=== PATIENT | female | born 1955 | race Caucasian/White ===

== ENCOUNTER 2018-01-27 07:50 | Emergency (ER) | payer OTHER ==
[~2018-01-27] VITALS: Ht 162.6 cm; Wt 98.9 kg
[2018-01-27 07:55] VITALS: BP_SYST 199
[2018-01-27] MEDS ORDERED: ALBUTEROL SULFATE 0.083% 2.5 MG/3 ML VIAL.NEB IH ONE ×2 (08:00→09:15)
[2018-01-27] MEDS ORDERED: IPRATROPIUM BROM 0.5 MG/2.5 ML VIAL.NEB (ATROVENT) IH ONE ×2 (08:00→09:15)
[2018-01-27] MEDS ORDERED: PREDNISONE 20 MG TABLET PO ONE (08:00)
[2018-01-27] MEDS ORDERED: ASPIRIN 81 MG TAB.CHEW PO ONE (08:15)
[2018-01-27] MEDS ORDERED: FLUT1DIS3 INH (08:44)
[2018-01-27] MEDS ORDERED: DILT240C91 PO (08:44)
[2018-01-27] MEDS ORDERED: MONT10TA25 PO (08:44)
[2018-01-27] MEDS ORDERED: VALS320T10 PO (08:44)
[2018-01-27] MEDS ORDERED: LIP20 PO (08:44)
[2018-01-27] MEDS ORDERED: SITA100T7 PO (08:44)
[2018-01-27] MEDS ORDERED: PRO40 PO (08:44)
[2018-01-27] MEDS ORDERED: METF1000 PO (08:44)
[2018-01-27] MEDS ORDERED: AMLO5TAB4 PO (08:44)
[2018-01-27] MEDS ORDERED: ASA81 PO (08:44)
[2018-01-27] MEDS ORDERED: methylPREDNISolone SOD SUCC/PF 62.5 MG/ML VIAL IVP ONE (08:45)
[2018-01-27] MEDS ORDERED: ALBU2.5V7 INH (09:06)
[2018-01-27] MEDS ORDERED: MORPHINE 4 MG/ML INJ. SYRINGE IVP ONE (09:15)
[2018-01-27 09:32] LABS: CALCIUM 9.3 mg/dL (8.4-11.0); CREATININE 0.79 mg/dL (0.55-1.30); POTASSIUM 4.1 mmol/L (3.5-5.1)
[2018-01-27 09:37] LABS: ALBUMIN 3.1 g/dL (3.4-4.8); TOTAL BILIRUBIN 0.4 mg/dL (0.0-1.0)
[2018-01-27 09:38] LABS: PROTHROMBIN TIME 9.7 SECS (9.5-12.5)
[2018-01-27 09:40] LABS: BASOPHILS # (AUTO) 0.5 K/uL (0.0-0.2); BASOPHILS % (AUTO) 3.1 % (0.0-2.0); EOSINOPHILS # (AUTO) 0.1 K/uL (0.0-0.4); EOSINOPHILS % (AUTO) 0.5 % (0.0-4.0); HEMATOCRIT 40.4 % (36-48); HEMOGLOBIN 13.4 g/dL (12.0-16.0); LYMPHOCYTES # (AUTO) 1.3 K/uL (1.0-5.5); LYMPHOCYTES % (AUTO) 8.3 % (20.5-51.5); MEAN CORPUSCULAR HEMOGLOBIN 29 pg (27-31); MEAN CORPUSCULAR HGB CONC 33 % (32-36); MEAN CORPUSCULAR VOLUME 88 fL (79.0-98.0); MONOCYTES % (AUTO) 6.1 % (1.7-9.3); NEUTROPHILS # (AUTO) 13.1 K/uL (1.8-7.7); PLATELET COUNT (AUTO) 396 K/uL (130-430); RED BLOOD CELL COUNT(AUTO) 4.58 MIL/uL (4.2-6.2)
[2018-01-27 10:35] VITALS: BP_SYST 147
== END 2018-01-27 10:35 | disposition home or self-care (01) ==
LOC: SED 07:50
DX: R07.89 Other chest pain (principal); R06.02 Shortness of breath; J44.9 Chronic obstructive pulmonary disease, unspecified; E11.9 Type 2 diabetes mellitus without complications; I10 Essential (primary) hypertension; Z98.84 Bariatric surgery status; Z88.0 Allergy status to penicillin; Z79.899 Other long term (current) drug therapy
CPT/HCPCS: 36415; 71045; 80053; 82550; 83880; 84484; 85025; 85610; 85730; 93005; 94640; 96374; 96375; 99285; J2270; J2930; J7512; J7613

== ENCOUNTER 2020-02-10 12:36 | Inpatient (IN) | payer OTHER, SELFPAY ==
[~2020-02-10] VITALS: Ht 157.5 cm; Wt 131.5 kg
[~2020-02-10 12:36] MED LIST: ALBU2.5V7 INH; AMLO5TAB4 PO; ASA81 PO; DILT240C91 PO; FLUT1DIS3 INH; LIP20 PO; METF1000 PO; MONT10TA25 PO; PRO40 PO; SITA100T11 PO; VALS320T2 PO
[2020-02-10 12:48] VITALS: BP_SYST 145
[2020-02-10] MEDS ORDERED: DILTIAZEM HCL 25 MG/5 ML VIAL IVP ONE ×3 (14:00→17:30)
[2020-02-10 15:04] LABS: BASOPHILS % (AUTO) 0.2 % (0.0-2.0); HEMATOCRIT 38.1 % (36-48); HEMOGLOBIN 11.9 g/dL (12.0-16.0); LYMPHOCYTES # (AUTO) 0.4 K/uL (1.0-5.5); LYMPHOCYTES % (AUTO) 3.4 % (20.5-51.5); MEAN CORPUSCULAR HEMOGLOBIN 27 pg (27-31); MEAN CORPUSCULAR HGB CONC 31 % (32-36); MEAN CORPUSCULAR VOLUME 86 fL (79.0-98.0); MONOCYTES # (AUTO) 0.6 K/uL (0.0-1.0); NEUTROPHILS # (AUTO) 10.2 K/uL (1.8-7.7); NEUTROPHILS % (AUTO) 91.4 % (40.0-70.0); PLATELET COUNT (AUTO) 188 K/uL (130-430); RED CELL DISTRIBUTION WIDTH 18.5 % (9.0-15.0); WHITE BLOOD COUNT (AUTO) 11.2 K/uL (4.8-10.8)
[2020-02-10 15:58] LABS: CALCIUM 9.1 mg/dL (8.4-11.0); CREATININE 0.93 mg/dL (0.55-1.30); POTASSIUM 5.5 mmol/L (3.5-5.1)
[2020-02-10] MEDS ORDERED: DIGOXIN 0.5 MG/2 ML AMP IVP ONE (16:00)
[2020-02-10 16:04] LABS: ALBUMIN 3.3 g/dL (3.4-4.8); TOTAL BILIRUBIN 0.4 mg/dL (0.0-1.0)
[2020-02-10] MEDS ORDERED: DILTIAZEM HCL 125 MG in D5W 100 ML IV ONE (16:15)
[2020-02-10 16:24] LABS: C-REACTIVE PROTEIN QUANT 1.1 mg/dL (0-0.5)
[2020-02-10 16:33] LABS: PROTHROMBIN TIME 9.6 SECS (9.5-12.5)
[2020-02-10] MEDS ORDERED: ALBUTEROL SULFATE 0.083% 2.5 MG/3 ML VIAL.NEB INH PRN (17:30)
[2020-02-10] MEDS ORDERED: IPRATROPIUM BROM 0.5 MG/2.5 ML VIAL.NEB (ATROVENT) INH PRN (17:30)
[2020-02-10] MEDS ORDERED: DEXTROSE 50% JECT 50 ML DISP.SYRIN IVP PRN (17:30)
[2020-02-10 17:36] VITALS: BP_SYST 150
[2020-02-10] MEDS ORDERED: PRAM1TAB4 PO (18:22)
[2020-02-10] MEDS ORDERED: OMEP20CA11 PO (18:22)
[2020-02-10] MEDS ORDERED: ALBU8.5H8 INH (18:22)
[2020-02-10] MEDS ORDERED: NEU300 PO (18:22)
[2020-02-10] MEDS ORDERED: SPIRIVA INH (18:22)
[2020-02-10] MEDS ORDERED: IRBE300T40 PO (18:22)
[2020-02-10] MEDS ORDERED: SPIR25OR PO (18:22)
[2020-02-10] MEDS ORDERED: GLIM2TAB2 PO (18:22)
[2020-02-10] MEDS ORDERED: DILT120C89 PO (18:22)
[2020-02-10] MEDS ORDERED: DULA0.75 SQ (18:22)
[2020-02-10] MEDS ORDERED: PRED5POW MC (18:22)
[2020-02-10] MEDS ORDERED: PIOG30TA70 PO (18:22)
[2020-02-10] MEDS ORDERED: APIX5TAB4 PO (18:22)
[2020-02-10] MEDS ORDERED: PRED5POW11 PO (18:22)
[2020-02-10] MEDS ORDERED: FLEC150T2 PO (18:22)
[2020-02-10] MEDS ORDERED: DOXE50CA4 PO (18:22)
[2020-02-10] MEDS: METOPROLOL TARTRATE 5 MG/5 ML VIAL IVP PRN (18:37)
[2020-02-10] MEDS ORDERED: AZITHROMYCIN 500 MG in NS 250 ML IV ONE (18:45)
[2020-02-10] MEDS ORDERED: FUROSEMIDE 20 MG/2 ML VIAL IVP ONE (18:45)
[2020-02-10] MEDS ORDERED: METOPROLOL TARTRATE 5 MG/5 ML VIAL ONE (18:46)
[2020-02-10] MEDS: ALBUTEROL SULFATE 0.083% 2.5 MG/3 ML VIAL.NEB INH SCH (19:00)
[2020-02-10] MEDS: IPRATROPIUM BROM 0.5 MG/2.5 ML VIAL.NEB (ATROVENT) INH SCH (19:00)
[2020-02-10] MEDS ORDERED: LevALBUTEROL HCL 1.25 MG/0.5 ML *CONC.* VIAL.NEB (XOPENEX CONC.) INH ONE (20:02)
[2020-02-10] MEDS ORDERED: AZITHROMYCIN 500 MG/VIAL (ZITHROMAX) IV ONE (20:17)
[2020-02-10] MEDS: FUROSEMIDE 20 MG/2 ML VIAL IVP SCH (20:45)
[2020-02-10] MEDS: MONTELUKAST 10 MG TABLET PO SCH (21:10)
[2020-02-10] MEDS: methylPREDNISolone SOD SUCC/PF 62.5 MG/ML VIAL IVP SCH (22:51)
[2020-02-10 23:47] LABS: BILIRUBIN,URINE NEGATIVE (NEGATIVE); BLOOD, URINE NEGATIVE (NEGATIVE); CLARITY/URINE CLEAR (CLEAR); COLOR,URINE YELLOW (YELLOW); GLUCOSE,URINE 3+ (NEGATIVE); KETONES,URINE NEGATIVE (NEGATIVE); LEUKOCYTE ESTERASE ,URINE NEGATIVE (NEGATIVE); NITRITE, URINE NEGATIVE (NEGATIVE); PROTEIN URINE NEGATIVE (NEGATIVE); UROBILINOGEN,URINE 0.2 (0.2-1.0)
[2020-02-11] VITALS (21 sets, daily range): BP systolic 106–160
[2020-02-11] MEDS ORDERED: DILTIAZEM HCL 125 MG/25 ML VIAL IV ONE (00:46)
[2020-02-11] MEDS: IPRATROPIUM BROM 0.5 MG/2.5 ML VIAL.NEB (ATROVENT) INH SCH ×4 (01:00→20:15)
[2020-02-11] MEDS: ALBUTEROL SULFATE 0.083% 2.5 MG/3 ML VIAL.NEB INH SCH ×4 (01:00→20:15)
[2020-02-11] MEDS ORDERED: LevALBUTEROL HCL 1.25 MG/0.5 ML *CONC.* VIAL.NEB (XOPENEX CONC.) INH ONE (01:51)
[2020-02-11] MEDS: methylPREDNISolone SOD SUCC/PF 62.5 MG/ML VIAL IVP SCH ×3 (05:25→21:37)
[2020-02-11] MEDS: INSULIN REGULAR, HUMAN 100 UNITS/ML, 10 ML VIAL (humuLIN R) SUBCUT PRN ×3 (05:26→17:52)
[2020-02-11 08:46] LABS: HEMATOCRIT 38.2 % (36-48); HEMOGLOBIN 12.1 g/dL (12.0-16.0); LYMPHOCYTES # (AUTO) 0.4 K/uL (1.0-5.5); LYMPHOCYTES % (AUTO) 3.5 % (20.5-51.5); MEAN CORPUSCULAR HEMOGLOBIN 28 pg (27-31); MEAN CORPUSCULAR HGB CONC 32 % (32-36); MEAN CORPUSCULAR VOLUME 88 fL (79.0-98.0); MONOCYTES # (AUTO) 0.2 K/uL (0.0-1.0); MONOCYTES % (AUTO) 1.8 % (1.7-9.3); NEUTROPHILS # (AUTO) 11.3 K/uL (1.8-7.7); NEUTROPHILS % (AUTO) 94.7 % (40.0-70.0); PLATELET COUNT (AUTO) 196 K/uL (130-430); RED BLOOD CELL COUNT(AUTO) 4.35 MIL/uL (4.2-6.2); RED CELL DISTRIBUTION WIDTH 18.8 % (9.0-15.0)
[2020-02-11] MEDS: DILTIAZEM HCL 240 MG CAP.SR.24H PO SCH (08:47)
[2020-02-11] MEDS: ASPIRIN 81 MG TAB.CHEW PO SCH (08:47)
[2020-02-11] MEDS: PANTOPRAZOLE SODIUM 40 MG TAB PO SCH (08:48)
[2020-02-11] MEDS: ATORVASTATIN 20 MG TABLET PO SCH (08:48)
[2020-02-11 08:58] LABS: CALCIUM 9.2 mg/dL (8.4-11.0); CREATININE 1.03 mg/dL (0.55-1.30); POTASSIUM 4.8 mmol/L (3.5-5.1)
[2020-02-11] MEDS ORDERED: LOSARTAN POTASSIUM 50 MG TABLET (COZAAR) PO SCH (09:00)
[2020-02-11 09:03] LABS: ALBUMIN 3.4 g/dL (3.4-4.8); TOTAL BILIRUBIN 0.5 mg/dL (0.0-1.0)
[2020-02-11 10:05] LABS: PROTHROMBIN TIME 9.6 SECS (9.5-12.5)
[2020-02-11] MEDS: AZITHROMYCIN 500 MG in NS 250 ML IV SCH (12:08)
[2020-02-11] MEDS: FUROSEMIDE 20 MG/2 ML VIAL IVP SCH (12:09)
[2020-02-11] MEDS: DILTIAZEM HCL 125 MG in D5W 100 ML IV SCH (12:40)
[2020-02-11] MEDS ORDERED: METOPROLOL TARTRATE 25 MG TABLET PO ONE (12:45)
[2020-02-11] MEDS: MONTELUKAST 10 MG TABLET PO SCH (17:46)
[2020-02-11] MEDS ORDERED: IBUPROFEN 600 MG TABLET PO ONE (20:00)
[2020-02-11] MEDS: METOPROLOL TARTRATE 25 MG TABLET PO SCH (21:00)
[2020-02-12] VITALS (18 sets, daily range): BP systolic 118–165
[2020-02-12] MEDS ORDERED: PRAMIPEXOLE DI-HCL 0.25 MG TABLET PO ONE
[2020-02-12] MEDS ORDERED: DILTIAZEM HCL 125 MG/25 ML VIAL IV ONE (00:23)
[2020-02-12] MEDS: DILTIAZEM HCL 125 MG in D5W 100 ML IV SCH (00:30)
[2020-02-12] MEDS: INSULIN REGULAR, HUMAN 100 UNITS/ML, 10 ML VIAL (humuLIN R) SUBCUT PRN ×5 (00:34→23:57)
[2020-02-12] MEDS: ALBUTEROL SULFATE 0.083% 2.5 MG/3 ML VIAL.NEB INH SCH ×2 (01:53→07:18)
[2020-02-12] MEDS: IPRATROPIUM BROM 0.5 MG/2.5 ML VIAL.NEB (ATROVENT) INH SCH ×2 (01:54→07:18)
[2020-02-12] MEDS: methylPREDNISolone SOD SUCC/PF 62.5 MG/ML VIAL IVP SCH (06:02)
[2020-02-12] MEDS: METOPROLOL TARTRATE 5 MG/5 ML VIAL IVP PRN (06:08)
[2020-02-12] MEDS ORDERED: DOXEPINE (SINEQUAN) 25 MG CAP PO ONE ×2 (07:30)
[2020-02-12] MEDS: AZITHROMYCIN 500 MG in NS 250 ML IV SCH (09:34)
[2020-02-12] MEDS: PANTOPRAZOLE SODIUM 40 MG TAB PO SCH (09:34)
[2020-02-12] MEDS: DILTIAZEM HCL 240 MG CAP.SR.24H PO SCH (09:35)
[2020-02-12] MEDS: ATORVASTATIN 20 MG TABLET PO SCH (09:35)
[2020-02-12] MEDS: FUROSEMIDE 20 MG/2 ML VIAL IVP SCH ×2 (09:36→20:25)
[2020-02-12] MEDS: ASPIRIN 81 MG TAB.CHEW PO SCH (09:36)
[2020-02-12] MEDS: METOPROLOL TARTRATE 25 MG TABLET PO SCH ×2 (09:36→20:25)
[2020-02-12] MEDS: LEVALBUTEROL HCL 0.63 MG/3 ML VIAL.NEB INH SCH ×2 (14:04→19:00)
[2020-02-12] MEDS: MONTELUKAST 10 MG TABLET PO SCH (17:26)
[2020-02-12] MEDS ORDERED: INSULIN REGULAR, HUMAN 100 UNITS/ML, 10 ML VIAL SUBCUT ONE (18:00)
[2020-02-12] MEDS: DOXEPINE (SINEQUAN) 25 MG CAP PO SCH (20:25)
[2020-02-12] MEDS ORDERED: MUPIROCIN 1 GM OIN.PF.APP NS SCH (21:00)
[2020-02-13 00:23] VITALS: BP_SYST 123
[2020-02-13] MEDS: LEVALBUTEROL HCL 0.63 MG/3 ML VIAL.NEB INH SCH ×4 (01:00→19:51)
[2020-02-13] MEDS: INSULIN REGULAR, HUMAN 100 UNITS/ML, 10 ML VIAL (humuLIN R) SUBCUT PRN ×4 (06:02→23:27)
[2020-02-13 08:00] VITALS: BP_SYST 149
[2020-02-13] MEDS: AZITHROMYCIN 500 MG in NS 250 ML IV SCH (09:20)
[2020-02-13] MEDS: FUROSEMIDE 20 MG/2 ML VIAL IVP SCH ×2 (09:22→22:31)
[2020-02-13] MEDS: ASPIRIN 81 MG TAB.CHEW PO SCH (09:22)
[2020-02-13] MEDS: MUPIROCIN 2% TOPICAL OINTMENT 22 GM NS SCH ×2 (09:22→22:33)
[2020-02-13] MEDS: DILTIAZEM HCL 240 MG CAP.SR.24H PO SCH (09:23)
[2020-02-13] MEDS: METOPROLOL TARTRATE 25 MG TABLET PO SCH ×2 (09:23→22:35)
[2020-02-13] MEDS: PANTOPRAZOLE SODIUM 40 MG TAB PO SCH (09:23)
[2020-02-13] MEDS: ATORVASTATIN 20 MG TABLET PO SCH (09:23)
[2020-02-13] MEDS: MONTELUKAST 10 MG TABLET PO SCH (18:00)
[2020-02-13 18:58] LABS: BASOPHILS % (AUTO) 0.2 % (0.0-2.0); EOSINOPHILS % (AUTO) 0.1 % (0.0-4.0); HEMATOCRIT 39.1 % (36-48); HEMOGLOBIN 12.2 g/dL (12.0-16.0); LYMPHOCYTES # (AUTO) 1.7 K/uL (1.0-5.5); LYMPHOCYTES % (AUTO) 7.8 % (20.5-51.5); MEAN CORPUSCULAR HEMOGLOBIN 27 pg (27-31); MEAN CORPUSCULAR HGB CONC 31 % (32-36); MEAN CORPUSCULAR VOLUME 86 fL (79.0-98.0); MONOCYTES # (AUTO) 1.7 K/uL (0.0-1.0); NEUTROPHILS # (AUTO) 17.9 K/uL (1.8-7.7); NEUTROPHILS % (AUTO) 83.9 % (40.0-70.0); PLATELET COUNT (AUTO) 175 K/uL (130-430); RED BLOOD CELL COUNT(AUTO) 4.55 MIL/uL (4.2-6.2); RED CELL DISTRIBUTION WIDTH 19.2 % (9.0-15.0); WHITE BLOOD COUNT (AUTO) 21.4 K/uL (4.8-10.8)
[2020-02-13 19:11] VITALS: BP_SYST 145; BP_SYST 98
[2020-02-13 19:24] LABS: CREATININE 1.58 mg/dL (0.55-1.30)
[2020-02-13] MEDS: APIXABAN 2.5 MG TABLET PO SCH (22:28)
[2020-02-13] MEDS: methylPREDNISolone SOD SUCC 40 MG/ML VIAL IVP SCH (22:32)
[2020-02-13] MEDS: DOXEPINE (SINEQUAN) 25 MG CAP PO SCH (22:36)
[2020-02-13] MEDS: FLECAINIDE ACETATE 50 MG TABLET (TAMBOCOR) PO SCH (22:37)
[2020-02-14] MEDS: LEVALBUTEROL HCL 0.63 MG/3 ML VIAL.NEB INH SCH ×4 (01:06→18:38)
[2020-02-14 01:16] VITALS: BP_SYST 107
[2020-02-14] MEDS: INSULIN REGULAR, HUMAN 100 UNITS/ML, 10 ML VIAL (humuLIN R) SUBCUT PRN ×4 (06:25→23:35)
[2020-02-14 08:00] VITALS: BP_SYST 143
[2020-02-14] MEDS: ASPIRIN 81 MG TAB.CHEW PO SCH (09:00)
[2020-02-14] MEDS: APIXABAN 2.5 MG TABLET PO SCH (09:00)
[2020-02-14] MEDS: METOPROLOL TARTRATE 25 MG TABLET PO SCH ×2 (09:49→20:40)
[2020-02-14] MEDS: DILTIAZEM HCL 240 MG CAP.SR.24H PO SCH (09:50)
[2020-02-14] MEDS: ATORVASTATIN 20 MG TABLET PO SCH (09:51)
[2020-02-14] MEDS: PANTOPRAZOLE SODIUM 40 MG TAB PO SCH (09:51)
[2020-02-14] MEDS: methylPREDNISolone SOD SUCC 40 MG/ML VIAL IVP SCH ×2 (09:51→20:44)
[2020-02-14] MEDS: AZITHROMYCIN 500 MG in NS 250 ML IV SCH (09:52)
[2020-02-14] MEDS: FLECAINIDE ACETATE 50 MG TABLET (TAMBOCOR) PO SCH ×2 (09:53→20:39)
[2020-02-14] MEDS: MUPIROCIN 2% TOPICAL OINTMENT 22 GM NS SCH ×2 (09:54→20:40)
[2020-02-14 09:57] LABS: CALCIUM 9.2 mg/dL (8.4-11.0); CREATININE 1.22 mg/dL (0.55-1.30); POTASSIUM 4.6 mmol/L (3.5-5.1)
[2020-02-14 10:01] LABS: BASOPHILS % (AUTO) 0.1 % (0.0-2.0); HEMATOCRIT 40.8 % (36-48); HEMOGLOBIN 12.7 g/dL (12.0-16.0); LYMPHOCYTES # (AUTO) 0.4 K/uL (1.0-5.5); LYMPHOCYTES % (AUTO) 2.4 % (20.5-51.5); MEAN CORPUSCULAR HEMOGLOBIN 27 pg (27-31); MEAN CORPUSCULAR HGB CONC 31 % (32-36); MEAN CORPUSCULAR VOLUME 88 fL (79.0-98.0); MONOCYTES # (AUTO) 0.5 K/uL (0.0-1.0); MONOCYTES % (AUTO) 3.2 % (1.7-9.3); NEUTROPHILS # (AUTO) 14.9 K/uL (1.8-7.7); NEUTROPHILS % (AUTO) 94.3 % (40.0-70.0); PLATELET COUNT (AUTO) 183 K/uL (130-430); RED BLOOD CELL COUNT(AUTO) 4.64 MIL/uL (4.2-6.2); RED CELL DISTRIBUTION WIDTH 19.4 % (9.0-15.0); WHITE BLOOD COUNT (AUTO) 15.9 K/uL (4.8-10.8)
[2020-02-14] MEDS ORDERED: INSULIN GLARGINE 100 UNITS/ML 10 ML VIAL SUBCUT ONE (11:31)
[2020-02-14 12:35] VITALS: BP_SYST 111
[2020-02-14 14:27] VITALS: BP_SYST 111
[2020-02-14 16:24] VITALS: BP_SYST 142
[2020-02-14] MEDS: MONTELUKAST 10 MG TABLET PO SCH (17:54)
[2020-02-14] MEDS: DOXEPINE (SINEQUAN) 25 MG CAP PO SCH (20:38)
[2020-02-14 20:54] VITALS: BP_SYST 135
[2020-02-15] VITALS (7 sets, daily range): BP systolic 140–165
[2020-02-15] MEDS: LEVALBUTEROL HCL 0.63 MG/3 ML VIAL.NEB INH SCH ×4 (01:50→19:20)
[2020-02-15] MEDS: INSULIN REGULAR, HUMAN 100 UNITS/ML, 10 ML VIAL (humuLIN R) SUBCUT PRN ×2 (05:36→11:49)
[2020-02-15 07:58] LABS: BASOPHILS % (AUTO) 0.1 % (0.0-2.0); HEMOGLOBIN 12.4 g/dL (12.0-16.0); LYMPHOCYTES # (AUTO) 0.6 K/uL (1.0-5.5); LYMPHOCYTES % (AUTO) 3.6 % (20.5-51.5); MEAN CORPUSCULAR HEMOGLOBIN 27 pg (27-31); MEAN CORPUSCULAR HGB CONC 32 % (32-36); MEAN CORPUSCULAR VOLUME 86 fL (79.0-98.0); MONOCYTES # (AUTO) 0.8 K/uL (0.0-1.0); MONOCYTES % (AUTO) 5.2 % (1.7-9.3); NEUTROPHILS # (AUTO) 14.7 K/uL (1.8-7.7); NEUTROPHILS % (AUTO) 91.1 % (40.0-70.0); PLATELET COUNT (AUTO) 179 K/uL (130-430); RED BLOOD CELL COUNT(AUTO) 4.53 MIL/uL (4.2-6.2); RED CELL DISTRIBUTION WIDTH 18.8 % (9.0-15.0); WHITE BLOOD COUNT (AUTO) 16.1 K/uL (4.8-10.8)
[2020-02-15 08:12] LABS: ALBUMIN 3.2 g/dL (3.4-4.8); C-REACTIVE PROTEIN QUANT 1.4 mg/dL (0-0.5); CALCIUM 9.3 mg/dL (8.4-11.0); CREATININE 1.01 mg/dL (0.55-1.30); POTASSIUM 4.3 mmol/L (3.5-5.1); TOTAL BILIRUBIN 0.5 mg/dL (0.0-1.0)
[2020-02-15] MEDS ORDERED: INSULIN GLARGINE 100 UNITS/ML 10 ML VIAL SUBCUT SCH (09:00)
[2020-02-15] MEDS: MUPIROCIN 2% TOPICAL OINTMENT 22 GM NS SCH ×2 (09:00→21:27)
[2020-02-15] MEDS: PANTOPRAZOLE SODIUM 40 MG TAB PO SCH (09:38)
[2020-02-15] MEDS: ATORVASTATIN 20 MG TABLET PO SCH (09:38)
[2020-02-15] MEDS: DILTIAZEM HCL 240 MG CAP.SR.24H PO SCH (09:38)
[2020-02-15] MEDS: FLECAINIDE ACETATE 50 MG TABLET (TAMBOCOR) PO SCH (09:39)
[2020-02-15] MEDS: AZITHROMYCIN 500 MG in NS 250 ML IV SCH (09:39)
[2020-02-15] MEDS: methylPREDNISolone SOD SUCC 40 MG/ML VIAL IVP SCH ×2 (09:39→21:26)
[2020-02-15] MEDS: METOPROLOL TARTRATE 25 MG TABLET PO SCH ×2 (09:57→21:27)
[2020-02-15 11:25] LABS: ERYTHROCYTE SEDIMENTATION RATE 2 MM/HR (0-20)
[2020-02-15] MEDS: METOPROLOL TARTRATE 5 MG/5 ML VIAL IVP PRN (11:46)
[2020-02-15] MEDS ORDERED: DEXTROSE 50% JECT 50 ML DISP.SYRIN IVP PRN (16:00)
[2020-02-15] MEDS: INSULIN Lispro 100 UNITS/ML VIAL (humaLOG) SUBCUT SCH (17:18)
[2020-02-15] MEDS: INSULIN LISPRO SLIDING SCALE 100 UNITS/ML VIAL (humaLOG) SUBCUT PRN ×2 (18:06→23:26)
[2020-02-15] MEDS: MONTELUKAST 10 MG TABLET PO SCH (18:09)
[2020-02-15] MEDS: DOXEPINE (SINEQUAN) 25 MG CAP PO SCH (21:27)
[2020-02-16] VITALS (7 sets, daily range): BP systolic 136–155
[2020-02-16] MEDS: METOPROLOL TARTRATE 5 MG/5 ML VIAL IVP PRN (01:14)
[2020-02-16] MEDS: LEVALBUTEROL HCL 0.63 MG/3 ML VIAL.NEB INH SCH ×4 (01:29→19:25)
[2020-02-16] MEDS: INSULIN Lispro 100 UNITS/ML VIAL (humaLOG) SUBCUT SCH ×3 (06:56→17:44)
[2020-02-16] MEDS: INSULIN LISPRO SLIDING SCALE 100 UNITS/ML VIAL (humaLOG) SUBCUT PRN ×4 (06:57→23:08)
[2020-02-16] MEDS ORDERED: INSULIN GLARGINE 100 UNITS/ML 10 ML VIAL SUBCUT SCH ×2 (09:00)
[2020-02-16] MEDS: methylPREDNISolone SOD SUCC 40 MG/ML VIAL IVP SCH ×2 (09:16→22:41)
[2020-02-16] MEDS: MUPIROCIN 2% TOPICAL OINTMENT 22 GM NS SCH ×2 (09:16→22:40)
[2020-02-16] MEDS: DILTIAZEM HCL 180 MG CAP.SR.24H PO SCH (09:18)
[2020-02-16] MEDS: PANTOPRAZOLE SODIUM 40 MG TAB PO SCH (09:19)
[2020-02-16] MEDS: METOPROLOL TARTRATE 25 MG TABLET PO SCH ×2 (09:19→22:41)
[2020-02-16] MEDS: ATORVASTATIN 20 MG TABLET PO SCH (09:20)
[2020-02-16] MEDS: DIGOXIN 0.5 MG/2 ML AMP IVP SCH ×4 (11:09→22:40)
[2020-02-16] MEDS ORDERED: INSULIN NPH 100 UNITS/ML 10 ML VIAL SUBCUT ONE (16:00)
[2020-02-16] MEDS: MONTELUKAST 10 MG TABLET PO SCH (17:51)
[2020-02-16] MEDS: DOXEPINE (SINEQUAN) 25 MG CAP PO SCH (22:41)
[2020-02-17] VITALS (7 sets, daily range): BP systolic 152–192
[2020-02-17] MEDS: METOPROLOL TARTRATE 5 MG/5 ML VIAL IVP PRN ×2 (00:41→05:59)
[2020-02-17] MEDS: LEVALBUTEROL HCL 0.63 MG/3 ML VIAL.NEB INH SCH ×3 (01:25→13:00)
[2020-02-17] MEDS: INSULIN LISPRO SLIDING SCALE 100 UNITS/ML VIAL (humaLOG) SUBCUT PRN ×2 (05:45→12:07)
[2020-02-17] MEDS: INSULIN Lispro 100 UNITS/ML VIAL (humaLOG) SUBCUT SCH ×2 (06:04→12:06)
[2020-02-17 08:20] LABS: CALCIUM 9.7 mg/dL (8.4-11.0); CREATININE 0.76 mg/dL (0.55-1.30); POTASSIUM 4.9 mmol/L (3.5-5.1)
[2020-02-17] MEDS ORDERED: INSULIN GLARGINE 100 UNITS/ML 10 ML VIAL SUBCUT SCH (09:00)
[2020-02-17] MEDS ORDERED: DIGOXIN 0.5 MG/2 ML AMP IVP SCH (09:00)
[2020-02-17] MEDS: methylPREDNISolone SOD SUCC 40 MG/ML VIAL IVP SCH (09:01)
[2020-02-17] MEDS: PANTOPRAZOLE SODIUM 40 MG TAB PO SCH (09:01)
[2020-02-17] MEDS: ATORVASTATIN 20 MG TABLET PO SCH (09:02)
[2020-02-17] MEDS: DILTIAZEM HCL 180 MG CAP.SR.24H PO SCH (09:02)
[2020-02-17] MEDS: MUPIROCIN 2% TOPICAL OINTMENT 22 GM NS SCH (09:08)
[2020-02-17] MEDS: METOPROLOL TARTRATE 25 MG TABLET PO SCH (09:17)
== END 2020-02-17 14:35 | disposition home or self-care (01) | DRG 291 ==
LOC: SED 12:36 → SMU 16:15 → SIC 21:15 → STU 02-12 16:38
PROVIDERS: ADMIT Internal Medicine Hospice and Palliative Medicine; ATTEND Internal Medicine Hospice and Palliative Medicine
PROC: 05H533Z Insertion of Infusion Device into Right Subclavian Vein, Percutaneous Approach (ICD-10-PCS; principal; 2020-02-11)
DX: I50.33 Acute on chronic diastolic (congestive) heart failure (principal); J96.21 Acute and chronic respiratory failure with hypoxia; J45.901 Unspecified asthma with (acute) exacerbation; I48.20 Chronic atrial fibrillation, unspecified; J44.1 Chronic obstructive pulmonary disease with (acute) exacerbation; N17.9 Acute kidney failure, unspecified; Z68.43 Body mass index [BMI] 50.0-59.9, adult; E11.65 Type 2 diabetes mellitus with hyperglycemia; R31.9 Hematuria, unspecified; Z20.828 Contact with and (suspected) exposure to other viral communicable diseases; E66.01 Morbid (severe) obesity due to excess calories; Z77.22 Contact with and (suspected) exposure to environmental tobacco smoke (acute) (chronic); Z79.52 Long term (current) use of systemic steroids; Z82.5 Family history of asthma and other chronic lower respiratory diseases; Z83.3 Family history of diabetes mellitus; Z90.710 Acquired absence of both cervix and uterus; Z98.84 Bariatric surgery status; Z88.0 Allergy status to penicillin; Z79.82 Long term (current) use of aspirin; Z79.899 Other long term (current) drug therapy
CPT/HCPCS: 36415; 36600; 71045; 80048; 80053; 81003; 82550-TC; 82728; 82803-TC; 82962; 83036; 83605; 83615-TC; 83880; 84484; 85025; 85384-TC; 85610-TC; 85651-TC; 85730-TC; 86140; 87040-TC; 87081; 93005; 93306; 94640; 94760; 96365; 96366; 96375; 96376; 97116-GP; 97530-GP; 99291; C1751; G0378; J0456; J1030; J1160; J1815; J1940; J2930; J3490; J7050; J7060; J7612; J7613; J7614; U0003-CS

== ENCOUNTER 2020-03-02 13:07 | Inpatient (IN) | payer OTHER, SELFPAY ==
[~2020-03-02] VITALS: Ht 157.5 cm; Wt 123.0 kg
[2020-03-02 13:07] VITALS: BP_SYST 164
[~2020-03-02 13:07] MED LIST changes: +ALBU8.5H8 INH; -AMLO5TAB4 PO; +APIX5TAB4 PO; -DILT240C91 PO; +DOXE50CA4 PO; +FLEC150T2 PO; +GLIM2TAB2 PO; +IRBE300T40 PO; +NEU300 PO; +OMEP20CA11 PO; +PRAM1TAB4 PO; -PRO40 PO; -SITA100T11 PO; +SPIR25OR PO; +SPIRIVA INH; -VALS320T2 PO
[2020-03-02 16:42] LABS: BASOPHILS % (AUTO) 0.4 % (0.0-2.0); EOSINOPHILS # (AUTO) 0.2 K/uL (0.0-0.4); EOSINOPHILS % (AUTO) 1.7 % (0.0-4.0); HEMATOCRIT 35.9 % (36-48); HEMOGLOBIN 11.5 g/dL (12.0-16.0); LYMPHOCYTES # (AUTO) 1.4 K/uL (1.0-5.5); LYMPHOCYTES % (AUTO) 15.1 % (20.5-51.5); MEAN CORPUSCULAR HEMOGLOBIN 27 pg (27-31); MEAN CORPUSCULAR HGB CONC 32 % (32-36); MEAN CORPUSCULAR VOLUME 85 fL (79.0-98.0); MONOCYTES # (AUTO) 0.7 K/uL (0.0-1.0); MONOCYTES % (AUTO) 7.6 % (1.7-9.3); NEUTROPHILS # (AUTO) 6.9 K/uL (1.8-7.7); NEUTROPHILS % (AUTO) 75.2 % (40.0-70.0); PLATELET COUNT (AUTO) 330 K/uL (130-430); RED BLOOD CELL COUNT(AUTO) 4.21 MIL/uL (4.2-6.2); RED CELL DISTRIBUTION WIDTH 18.5 % (9.0-15.0); WHITE BLOOD COUNT (AUTO) 9.1 K/uL (4.8-10.8)
[2020-03-02 17:21] LABS: INR 1.1 (0.8-1.2); PROTHROMBIN TIME 10.6 SECS (9.5-12.5)
[2020-03-02 17:32] LABS: CREATININE 0.84 mg/dL (0.55-1.30); POTASSIUM 3.7 mmol/L (3.5-5.1)
[2020-03-02 17:37] LABS: ALBUMIN 2.2 g/dL (3.4-4.8); TOTAL BILIRUBIN 0.4 mg/dL (0.0-1.0)
[2020-03-02] MEDS ORDERED: AZITHROMYCIN 500 MG in NS 250 ML IV ONE (19:00)
[2020-03-02] MEDS ORDERED: LEVOFLOXACIN 500 MG/D5W 100 ML IV ONE (19:00)
[2020-03-02] MEDS ORDERED: AZITHROMYCIN 500 MG/VIAL (ZITHROMAX) IV ONE (19:33)
[2020-03-02] MEDS ORDERED: APIX5TAB PO (19:46)
[2020-03-02] MEDS ORDERED: LIP20 PO (19:48)
[2020-03-02] MEDS ORDERED: METO-442 PO (19:57)
[2020-03-02] MEDS ORDERED: DILT300C54 PO (19:57)
[2020-03-02] MEDS ORDERED: FURO-149 PO (19:57)
[2020-03-02] MEDS: AZITHROMYCIN 500 MG in NS 250 ML IV SCH (20:45)
[2020-03-02 20:54] VITALS: BP_SYST 142
[2020-03-02] MEDS ORDERED: ALBUTEROL SULFATE 0.083% 2.5 MG/3 ML VIAL.NEB INH PRN (21:00)
[2020-03-02] MEDS ORDERED: ALBUTEROL MDI INHALATION 8 GM INH INH PRN (21:00)
[2020-03-02] MEDS ORDERED: FLUTICASONE 250 mCg/SALMETEROL 50 mCg DISKUS W.DEV INH SCH (21:00)
[2020-03-02] MEDS ORDERED: DIPHENHYDRAMINE INJ 50 MG/ML VIAL IVP PRN (21:00)
[2020-03-02 22:00] VITALS: BP_SYST 142
[2020-03-02] MEDS: GABAPENTIN 300 MG CAPSULE PO SCH (22:00)
[2020-03-02] MEDS: APIXABAN 2.5 MG TABLET PO SCH (22:00)
[2020-03-02] MEDS: NORMAL SALINE 5 ML DISP.SYRIN IVF SCH (22:00)
[2020-03-02] MEDS: ATORVASTATIN 20 MG TABLET PO SCH (22:00)
[2020-03-02] MEDS: FLECAINIDE ACETATE 50 MG TABLET (TAMBOCOR) PO SCH (22:00)
[2020-03-03] MEDS: ALBUTEROL SULFATE 0.083% 2.5 MG/3 ML VIAL.NEB INH SCH ×4 (01:00→20:47)
[2020-03-03] MEDS: cefTRIAXone 1 GM IVPB PREMIX 50 ML IV SCH ×2 (02:21→21:13)
[2020-03-03] MEDS ORDERED: AZITHROMYCIN 500 MG/VIAL (ZITHROMAX) IV ONE (02:28)
[2020-03-03] MEDS ORDERED: cefTRIAXone 1 GM VIAL ONE (02:28)
[2020-03-03] MEDS ORDERED: MORPHINE 2 MG/ML INJ. SYRINGE ONE (02:36)
[2020-03-03] MEDS: MORPHINE 2 MG/ML INJ. SYRINGE IVP PRN ×3 (02:43→22:40)
[2020-03-03] MEDS: NORMAL SALINE 5 ML DISP.SYRIN IVF SCH ×3 (06:28→21:14)
[2020-03-03] MEDS: INSULIN REGULAR, HUMAN 100 UNITS/ML, 10 ML VIAL (humuLIN R) SUBCUT PRN ×3 (06:29→21:15)
[2020-03-03 07:03] LABS: BASOPHILS % (AUTO) 0.4 % (0.0-2.0); EOSINOPHILS # (AUTO) 0.2 K/uL (0.0-0.4); EOSINOPHILS % (AUTO) 1.9 % (0.0-4.0); HEMATOCRIT 37.1 % (36-48); HEMOGLOBIN 11.8 g/dL (12.0-16.0); LYMPHOCYTES # (AUTO) 1.2 K/uL (1.0-5.5); LYMPHOCYTES % (AUTO) 14.9 % (20.5-51.5); MEAN CORPUSCULAR HEMOGLOBIN 28 pg (27-31); MEAN CORPUSCULAR HGB CONC 32 % (32-36); MEAN CORPUSCULAR VOLUME 86 fL (79.0-98.0); MONOCYTES # (AUTO) 0.6 K/uL (0.0-1.0); NEUTROPHILS % (AUTO) 74.8 % (40.0-70.0); PLATELET COUNT (AUTO) 306 K/uL (130-430); RED CELL DISTRIBUTION WIDTH 18.4 % (9.0-15.0)
[2020-03-03] MEDS: IPRATROPIUM BROM 0.5 MG/2.5 ML VIAL.NEB (ATROVENT) INH SCH ×4 (07:40→20:48)
[2020-03-03] MEDS: BUDESONIDE 0.5 MG/2 ML AMPUL.NEB INH SCH ×2 (07:40→20:47)
[2020-03-03 07:53] LABS: ALBUMIN 2.2 g/dL (3.4-4.8); CALCIUM 9.1 mg/dL (8.4-11.0); CREATININE 0.64 mg/dL (0.55-1.30); POTASSIUM 3.3 mmol/L (3.5-5.1); TOTAL BILIRUBIN 0.4 mg/dL (0.0-1.0)
[2020-03-03 08:00] VITALS: BP_SYST 128
[2020-03-03] MEDS ORDERED: TIOTROPIUM BROMIDE 18 mcg/INHALATION (CAPSULE) INH SCH (09:00)
[2020-03-03] MEDS ORDERED: DILTIAZEM HCL 120 MG CAP.SR.24H PO SCH (09:00)
[2020-03-03] MEDS: FUROSEMIDE 40 MG TABLET PO SCH (09:13)
[2020-03-03] MEDS: DILTIAZEM CD 180 MG, DILTIAZEM CD 120 MG PO SCH ×2 (09:14)
[2020-03-03] MEDS: GABAPENTIN 300 MG CAPSULE PO SCH ×3 (09:14→21:13)
[2020-03-03] MEDS: METOPROLOL TARTRATE 50 MG TABLET PO SCH (09:14)
[2020-03-03] MEDS: FLECAINIDE ACETATE 50 MG TABLET (TAMBOCOR) PO SCH ×2 (09:16→21:14)
[2020-03-03] MEDS: GLIMEPIRIDE 2 MG TABLET PO SCH (09:16)
[2020-03-03] MEDS: APIXABAN 2.5 MG TABLET PO SCH ×2 (09:16→21:13)
[2020-03-03] MEDS ORDERED: POTASSIUM CHLORIDE 20 MEQ TAB.PRT.SR PO ONE (11:30)
[2020-03-03 12:00] VITALS: BP_SYST 120
[2020-03-03] MEDS: MONTELUKAST 10 MG TABLET PO SCH (17:45)
[2020-03-03 18:37] VITALS: BP_SYST 128
[2020-03-03 20:00] VITALS: BP_SYST 140
[2020-03-03] MEDS: AZITHROMYCIN 500 MG in NS 250 ML IV SCH (21:13)
[2020-03-03] MEDS: ATORVASTATIN 20 MG TABLET PO SCH (21:13)
[2020-03-03] MEDS ORDERED: METOPROLOL TARTRATE 50 MG TABLET PO ONE (23:30)
[2020-03-03] MEDS ORDERED: METOPROLOL TARTRATE 50 MG TABLET ONE (23:54)
[2020-03-04] VITALS: BP_SYST 146
[2020-03-04] MEDS: ALBUTEROL SULFATE 0.083% 2.5 MG/3 ML VIAL.NEB INH SCH ×4 (01:55→20:16)
[2020-03-04] MEDS: NORMAL SALINE 5 ML DISP.SYRIN IVF SCH ×3 (06:41→21:00)
[2020-03-04] MEDS: INSULIN REGULAR, HUMAN 100 UNITS/ML, 10 ML VIAL (humuLIN R) SUBCUT PRN ×4 (06:42→20:50)
[2020-03-04 08:00] VITALS: BP_SYST 121
[2020-03-04] MEDS: IPRATROPIUM BROM 0.5 MG/2.5 ML VIAL.NEB (ATROVENT) INH SCH ×3 (08:00→20:15)
[2020-03-04] MEDS: BUDESONIDE 0.5 MG/2 ML AMPUL.NEB INH SCH ×2 (08:00→20:16)
[2020-03-04 08:28] LABS: BASOPHILS % (AUTO) 0.5 % (0.0-2.0); EOSINOPHILS # (AUTO) 0.2 K/uL (0.0-0.4); EOSINOPHILS % (AUTO) 1.7 % (0.0-4.0); HEMOGLOBIN 11.7 g/dL (12.0-16.0); LYMPHOCYTES # (AUTO) 1.6 K/uL (1.0-5.5); LYMPHOCYTES % (AUTO) 16.3 % (20.5-51.5); MEAN CORPUSCULAR HEMOGLOBIN 27 pg (27-31); MEAN CORPUSCULAR HGB CONC 32 % (32-36); MEAN CORPUSCULAR VOLUME 86 fL (79.0-98.0); MONOCYTES # (AUTO) 0.6 K/uL (0.0-1.0); MONOCYTES % (AUTO) 6.7 % (1.7-9.3); NEUTROPHILS # (AUTO) 7.1 K/uL (1.8-7.7); NEUTROPHILS % (AUTO) 74.8 % (40.0-70.0); PLATELET COUNT (AUTO) 410 K/uL (130-430); RED CELL DISTRIBUTION WIDTH 18.6 % (9.0-15.0); WHITE BLOOD COUNT (AUTO) 9.6 K/uL (4.8-10.8)
[2020-03-04 08:51] LABS: ALBUMIN 2.5 g/dL (3.4-4.8); CALCIUM 9.7 mg/dL (8.4-11.0); CREATININE 0.79 mg/dL (0.55-1.30); POTASSIUM 3.8 mmol/L (3.5-5.1); TOTAL BILIRUBIN 0.4 mg/dL (0.0-1.0)
[2020-03-04] MEDS: GABAPENTIN 300 MG CAPSULE PO SCH ×3 (09:52→20:22)
[2020-03-04] MEDS: GLIMEPIRIDE 2 MG TABLET PO SCH (09:52)
[2020-03-04] MEDS: FUROSEMIDE 40 MG TABLET PO SCH (09:53)
[2020-03-04] MEDS: APIXABAN 2.5 MG TABLET PO SCH ×2 (09:53→20:28)
[2020-03-04] MEDS: METOPROLOL TARTRATE 50 MG TABLET PO SCH ×2 (09:54→21:00)
[2020-03-04] MEDS: FLECAINIDE ACETATE 50 MG TABLET (TAMBOCOR) PO SCH ×2 (09:55→20:25)
[2020-03-04] MEDS: DILTIAZEM CD 180 MG, DILTIAZEM CD 120 MG PO SCH ×2 (09:56)
[2020-03-04] MEDS ORDERED: DILTIAZEM HCL 120 MG CAP.SR.24H PO ONE (10:08)
[2020-03-04] MEDS ORDERED: MORPHINE 2 MG/ML INJ. SYRINGE IVP ONE (10:30)
[2020-03-04] MEDS ORDERED: NALOXONE HCL 0.4 MG/ML AMP (NARCAN) IVP PRN ×2 (10:30)
[2020-03-04] MEDS ORDERED: ACETAMINOPHEN 650 MG/20.3 ML UDC PO PRN (10:30)
[2020-03-04] MEDS ORDERED: MORPHINE 2 MG/ML INJ. SYRINGE IVP PRN (10:30)
[2020-03-04 12:00] VITALS: BP_SYST 140
[2020-03-04 16:00] VITALS: BP_SYST 129
[2020-03-04] MEDS: MONTELUKAST 10 MG TABLET PO SCH (17:08)
[2020-03-04 19:00] VITALS: BP_SYST 142
[2020-03-04 20:00] VITALS: BP_SYST 142
[2020-03-04] MEDS: cefTRIAXone 1 GM IVPB PREMIX 50 ML IV SCH (20:21)
[2020-03-04] MEDS: ATORVASTATIN 20 MG TABLET PO SCH (20:22)
[2020-03-04] MEDS: AZITHROMYCIN 500 MG in NS 250 ML IV SCH (20:22)
[2020-03-05] MEDS: MORPHINE 2 MG/ML INJ. SYRINGE IVP PRN ×4 (01:55→22:06)
[2020-03-05] MEDS: ALBUTEROL SULFATE 0.083% 2.5 MG/3 ML VIAL.NEB INH SCH ×4 (04:57→20:04)
[2020-03-05] MEDS: NORMAL SALINE 5 ML DISP.SYRIN IVF SCH ×3 (06:13→22:00)
[2020-03-05] MEDS: INSULIN REGULAR, HUMAN 100 UNITS/ML, 10 ML VIAL (humuLIN R) SUBCUT PRN ×4 (06:22→22:04)
[2020-03-05 08:00] VITALS: BP_SYST 127
[2020-03-05] MEDS: BUDESONIDE 0.5 MG/2 ML AMPUL.NEB INH SCH ×2 (08:18→20:04)
[2020-03-05] MEDS: IPRATROPIUM BROM 0.5 MG/2.5 ML VIAL.NEB (ATROVENT) INH SCH ×3 (08:18→20:04)
[2020-03-05 09:08] VITALS: BP_SYST 142
[2020-03-05] MEDS: DILTIAZEM CD 180 MG, DILTIAZEM CD 120 MG PO SCH ×2 (09:16)
[2020-03-05] MEDS: APIXABAN 2.5 MG TABLET PO SCH ×2 (09:17→22:02)
[2020-03-05] MEDS: FUROSEMIDE 40 MG TABLET PO SCH (09:17)
[2020-03-05] MEDS: FLECAINIDE ACETATE 50 MG TABLET (TAMBOCOR) PO SCH ×2 (09:18→22:01)
[2020-03-05] MEDS: METOPROLOL TARTRATE 50 MG TABLET PO SCH ×2 (09:18→22:00)
[2020-03-05] MEDS: GLIMEPIRIDE 2 MG TABLET PO SCH (09:18)
[2020-03-05] MEDS: GABAPENTIN 300 MG CAPSULE PO SCH ×3 (09:19→22:01)
[2020-03-05 12:25] VITALS: BP_SYST 126
[2020-03-05 16:12] VITALS: BP_SYST 121
[2020-03-05] MEDS: MONTELUKAST 10 MG TABLET PO SCH (17:36)
[2020-03-05 20:00] VITALS: BP_SYST 118
[2020-03-05] MEDS: ATORVASTATIN 20 MG TABLET PO SCH (22:01)
[2020-03-05] MEDS: AZITHROMYCIN 500 MG in NS 250 ML IV SCH (22:03)
[2020-03-05] MEDS: cefTRIAXone 1 GM IVPB PREMIX 50 ML IV SCH (22:03)
[2020-03-06 02:15] VITALS: BP_SYST 126
[2020-03-06] MEDS: ALBUTEROL SULFATE 0.083% 2.5 MG/3 ML VIAL.NEB INH SCH ×3 (04:23→13:00)
[2020-03-06] MEDS: NORMAL SALINE 5 ML DISP.SYRIN IVF SCH ×2 (06:00→14:19)
[2020-03-06] MEDS: INSULIN REGULAR, HUMAN 100 UNITS/ML, 10 ML VIAL (humuLIN R) SUBCUT PRN ×2 (06:17→11:05)
[2020-03-06] MEDS: BUDESONIDE 0.5 MG/2 ML AMPUL.NEB INH SCH (07:39)
[2020-03-06] MEDS: IPRATROPIUM BROM 0.5 MG/2.5 ML VIAL.NEB (ATROVENT) INH SCH ×2 (07:40→11:00)
[2020-03-06 08:02] LABS: BASOPHILS % (AUTO) 0.4 % (0.0-2.0); EOSINOPHILS # (AUTO) 0.2 K/uL (0.0-0.4); HEMATOCRIT 32.8 % (36-48); HEMOGLOBIN 10.3 g/dL (12.0-16.0); LYMPHOCYTES # (AUTO) 1.6 K/uL (1.0-5.5); LYMPHOCYTES % (AUTO) 16.4 % (20.5-51.5); MEAN CORPUSCULAR HEMOGLOBIN 27 pg (27-31); MEAN CORPUSCULAR HGB CONC 31 % (32-36); MEAN CORPUSCULAR VOLUME 87 fL (79.0-98.0); MONOCYTES # (AUTO) 0.7 K/uL (0.0-1.0); MONOCYTES % (AUTO) 7.3 % (1.7-9.3); NEUTROPHILS # (AUTO) 7.3 K/uL (1.8-7.7); NEUTROPHILS % (AUTO) 73.9 % (40.0-70.0); PLATELET COUNT (AUTO) 374 K/uL (130-430); RED BLOOD CELL COUNT(AUTO) 3.77 MIL/uL (4.2-6.2); RED CELL DISTRIBUTION WIDTH 18.8 % (9.0-15.0); WHITE BLOOD COUNT (AUTO) 9.9 K/uL (4.8-10.8)
[2020-03-06 08:04] LABS: ALANINE AMINOTRANSFERASE 42 U/L (12-78); ALBUMIN 2.3 g/dL (3.4-4.8); ASPARTATE AMINOTRANSFERASE 24 U/L (10-37); CALCIUM 9.4 mg/dL (8.4-11.0); CHLORIDE 99 mmol/L (98-107); GLUCOSE 212 mg/dL (70-99); POTASSIUM 4.5 mmol/L (3.5-5.1); SODIUM SERUM 137 mmol/L (136-145); TOTAL BILIRUBIN 0.3 mg/dL (0.0-1.0); UREA NITROGEN, BLOOD 10 mg/dL (8-21)
[2020-03-06] MEDS: GLIMEPIRIDE 2 MG TABLET PO SCH (08:13)
[2020-03-06] MEDS: GABAPENTIN 300 MG CAPSULE PO SCH (08:13)
[2020-03-06] MEDS: DILTIAZEM CD 180 MG, DILTIAZEM CD 120 MG PO SCH ×2 (08:14)
[2020-03-06] MEDS: METOPROLOL TARTRATE 50 MG TABLET PO SCH (08:15)
[2020-03-06] MEDS: FUROSEMIDE 40 MG TABLET PO SCH (08:15)
[2020-03-06 08:16] LABS: GFR AFRICAN AMERICAN 93 mL/min (>90)
[2020-03-06 08:17] LABS: ANION GAP < 3 (5-15)
[2020-03-06] MEDS: FLECAINIDE ACETATE 50 MG TABLET (TAMBOCOR) PO SCH (08:17)
[2020-03-06] MEDS: APIXABAN 2.5 MG TABLET PO SCH (08:17)
[2020-03-06 08:27] VITALS: BP_SYST 121
[2020-03-06 11:23] VITALS: BP_SYST 121
[2020-03-06 11:30] VITALS: BP_SYST 121
[2020-03-06] MEDS ORDERED: METO-442 PO (12:08)
[2020-03-06 15:31] VITALS: BP_SYST 134
== END 2020-03-06 15:35 | disposition home health service (06) | DRG 193 ==
LOC: SED 13:07 → STU 19:06
PROVIDERS: ADMIT Internal Medicine Hospice and Palliative Medicine; ATTEND Internal Medicine Hospice and Palliative Medicine
DX: J18.9 Pneumonia, unspecified organism (principal); E43 Unspecified severe protein-calorie malnutrition; J44.1 Chronic obstructive pulmonary disease with (acute) exacerbation; J45.901 Unspecified asthma with (acute) exacerbation; I48.92 Unspecified atrial flutter; I48.20 Chronic atrial fibrillation, unspecified; J44.0 Chronic obstructive pulmonary disease with (acute) lower respiratory infection; E87.1 Hypo-osmolality and hyponatremia; I50.32 Chronic diastolic (congestive) heart failure; Z68.42 Body mass index [BMI] 45.0-49.9, adult; Z20.828 Contact with and (suspected) exposure to other viral communicable diseases; E88.09 Other disorders of plasma-protein metabolism, not elsewhere classified; D64.9 Anemia, unspecified; E11.65 Type 2 diabetes mellitus with hyperglycemia; E66.01 Morbid (severe) obesity due to excess calories; I11.0 Hypertensive heart disease with heart failure; R09.02 Hypoxemia; Z88.0 Allergy status to penicillin; Z79.82 Long term (current) use of aspirin; Z79.899 Other long term (current) drug therapy
CPT/HCPCS: 36415; 71045; 80053; 82962; 83605; 83880; 84484; 85025; 85610-TC; 85730-TC; 87040-TC; 87081; 93005; 94640; 94760; 96365; 97163; 99285; G0378; J0456; J0696; J1815; J1956; J2270; J7050; J7613; J7626; U0003-CS

== ENCOUNTER 2023-03-12 20:11 | Emergency (ER) | payer OTHER ==
[~2023-03-12] VITALS: Ht 157.5 cm; Wt 88.0 kg
[~2023-03-12 20:11] MED LIST changes: +APIX5TAB PO; -APIX5TAB4 PO; -ASA81 PO; +DILT300C54 PO; -DOXE50CA4 PO; +FURO-149 PO; +GLIM2TAB PO; -GLIM2TAB2 PO; -IRBE300T40 PO; +METO-442 PO; +MONT-40 PO; -MONT10TA25 PO; -OMEP20CA11 PO; -PRAM1TAB4 PO; -SPIR25OR PO
[2023-03-12 20:22] VITALS: BP_SYST 114; PULSE 77; RESP 18; TEMP 97.1; O2SAT 88
[2023-03-12 22:04] LABS: BASOPHILS # (AUTO) 0.1 K/uL (0.0-0.2); BASOPHILS % (AUTO) 0.9 % (0.0-2.0); EOSINOPHILS # (AUTO) 0.3 K/uL (0.0-0.4); EOSINOPHILS % (AUTO) 4.3 % (0.0-4.0); HEMOGLOBIN 13.2 g/dL (12.0-16.0); LYMPHOCYTES # (AUTO) 2.5 K/uL (1.0-5.5); MEAN CORPUSCULAR HEMOGLOBIN 31 pg (27-31); MEAN CORPUSCULAR HGB CONC 32 % (32-36); MEAN CORPUSCULAR VOLUME 96 fL (79.0-98.0); MONOCYTES # (AUTO) 0.8 K/uL (0.0-1.0); MONOCYTES % (AUTO) 10.8 % (1.7-9.3); NEUTROPHILS # (AUTO) 4.1 K/uL (1.8-7.7); PLATELET COUNT (AUTO) 248 K/uL (130-430); RED BLOOD CELL COUNT(AUTO) 4.26 MIL/uL (4.2-6.2); RED CELL DISTRIBUTION WIDTH 16.1 % (9.0-15.0); WHITE BLOOD COUNT (AUTO) 7.8 K/uL (4.8-10.8)
[2023-03-12 22:18] LABS: CREATININE 0.71 mg/dL (0.55-1.30); POTASSIUM 3.9 mmol/L (3.5-5.1)
[2023-03-12 22:22] LABS: CALCIUM 8.6 mg/dL (8.4-11.0)
[2023-03-13] MEDS ORDERED: BACITRACIN 1 GM OINT TP ONE (01:00)
[2023-03-13 01:16] VITALS: BP_SYST 114; PULSE 77; RESP 18; TEMP 97.1; O2SAT 88
== END 2023-03-13 01:16 | disposition home or self-care (01) ==
LOC: SED 20:11
DX: S41.112A Laceration without foreign body of left upper arm, initial encounter (principal); F10.129 Alcohol abuse with intoxication, unspecified; J45.909 Unspecified asthma, uncomplicated; E11.9 Type 2 diabetes mellitus without complications; I10 Essential (primary) hypertension; Z88.0 Allergy status to penicillin; Z79.899 Other long term (current) drug therapy; W01.0XXA Fall on same level from slipping, tripping and stumbling without subsequent striking against object, initial encounter; Y93.89 Activity, other specified; Y92.89 Other specified places as the place of occurrence of the external cause; Y99.8 Other external cause status; Y90.6 Blood alcohol level of 120-199 mg/100 ml
CPT/HCPCS: 99284; 70450; 80048; 85025; 36415; 72125; 76376; G0482